=== PATIENT | male | born 1975 | race Caucasian/White ===

== ENCOUNTER 2018-10-23 12:15 | Emergency (ER) | payer OTHER ==
--- NOTE | 2018-10-23 12:39 | ED.PDOC ---
History of Present Illness - General Chief Complaint: Upper Extremity Injury Time Seen by Provider: 10/23/18 12:36 Source: patient Exam Limitations: no limitations - History of Present Illness Initial Comments: Patient presents with pain to the left thumb after a pipe fell on it. the pain is at the middle of the dorsal proximal phalange. Non-radiating, worse with movement, better with rest. Throbbing in nature. No previous injuries to that thumb. He says he got nauseous afterwards and that is typical when he gets a fracture. No other injuries nor complaints. Timing/Duration: 1-3 hours Severity: mild Improving Factors: rest Worsening Factors: movement Associated Symptoms: denies symptoms Allergies/Adverse Reactions: Allergies Penicillins Allergy (Verified 10/23/18 12:37) Home Medications: Ambulatory Orders NK 10/23/18 Review of Systems - Review of Systems Constitutional: States: no symptoms reported EENTM: States: no symptoms reported Respiratory: States: no symptoms reported Cardiology: States: no symptoms reported Gastrointestinal/Abdominal: States: no symptoms reported Genitourinary: States: no symptoms reported Musculoskeletal: States: see HPI Skin: States: no symptoms reported Neurological: States: no symptoms reported Endocrine: States: no symptoms reported Hematologic/Lymphatic: States: no symptoms reported Family Medical History - Family History Father Family History: Unknown Living Status: Still Living Hx Cardiac Disease: Yes - [place] Physical Exam - Physical Exam General Appearance: Alert Respiratory: lungs clear, normal breath sounds Cardiovascular/Chest: regular rate, rhythm Gastrointestinal/Abdominal: normal bowel sounds, non tender, soft Extremity: other - Left thumb is TTP at the dorsal proximal phalange. 5/5 movement to flexion/extension/adduction/abduction/opposition but all ranges cause pain. Sensation is fully intact throughout the entire thumb and capillary refill is less than two seconds. Progress - Progress Progress: 10/23/18 13:51 Radiographs of the left thumb showed no bony abnormalities, fractures, nor dislocations. Care instructions given. E.R. warnings given. Questions were elicited and answered. The patient voiced understanding and agreement with the plan. Departure - Departure Clinical Impression: Contusion of thumb Disposition: Discharge to Home or Self Care Condition: Good Departure Forms: ED Discharge - Pt. Copy, Patient Portal Self Enrollment Instructions: Contusion (DC) Diet: resume usual diet Activity: increase activity as tolerated Home Medications: Ambulatory Orders NK 10/23/18 Additional Instructions: Ice to the painful area as needed. You may take Tylenol or Ibuprofen as directed for pain. Return to activity as tolerated.
--- NOTE | 2018-10-23 13:22 | RAD ---
EXAM DESCRIPTION: Thumb,Left CLINICAL HISTORY: 42 years Male pain after pipe fell on it COMPARISON: None TECHNIQUE: AP, lateral and oblique views of the left thumb are obtained. FINDINGS: OSSEOUS: There is no evidence of acute fracture or osteolytic/osteoblastic lesions. Tiny well-corticated ossific densities along the interphalangeal joint of the thumb may reflect remote trauma. The joint spaces are preserved. Minimal marginal osteophytosis is noted in the first MCP joint and interphalangeal joint of the thumb indicating mild primary osteoarthritis. There is no evidence of marginal erosive changes to suggest an inflammatory arthritis. SOFT TISSUE: There is mild soft tissue swelling about the first MCP joint. No evidence of significant soft tissue calcifications. No radiopaque foreign bodies. IMPRESSION: NO ACUTE OSSEOUS ABNORMALITIES. REMAINDER OF FINDINGS DESCRIBED ABOVE. Electronically signed by: Kina Woodward MD 10/23/2018 1:19 PM [facility]
[2018-10-23 14:14] VITALS: BP 135/76; TEMP 97; O2SAT 99
== END 2018-10-23 14:12 | disposition home or self-care (01) ==
LOC: ER 12:15
DX: S60.012A Contusion of left thumb without damage to nail, initial encounter (principal); W20.8XXA Other cause of strike by thrown, projected or falling object, initial encounter; Y93.89 Activity, other specified; Y92.009 Unspecified place in unspecified non-institutional (private) residence as the place of occurrence of the external cause